=== PATIENT | female | born 1965 | race Hispanic/Latino ===

== ENCOUNTER 2024-12-13 22:23 | Emergency (ER) | payer MEDICARE ==
[~2024-12-13] VITALS: Ht 160 cm; Wt 54.4 kg
[~2024-12-13 22:23] MED LIST: ETOMIDATE 2 MG/ML 10 ML INJ IV ONE; SUCCINYLCHOLINE CHLORIDE 20 MG/ML 10ML VIAL ONE
[2024-12-13] MEDS: IPRATROPIUM BROMIDE 0.02% 2.5 ML NEB NEB ONE (23:00)
[2024-12-13] MEDS: ALBUTEROL SULF 0.083% NEB SOLN 3 ML NEB NEB STA (23:01)
[2024-12-13] MEDS: METHYLPREDNISOLONE SOD SUCC 125 MG/2ML VIAL IV ONE (23:05)
[2024-12-13 23:17] LABS: BASOPHILS % 0.5 % (0.0-1.0); EOSINOPHILS % 0.5 % (0.0-6.0); HEMATOCRIT 38.8 % (34.2-44.1); HEMOGLOBIN 11.6 g/dL (12.0-16.0); LYMPHOCYTES # (AUTO) 0.6 (1.0-3.2); LYMPHOCYTES % 9.3 % (18.0-39.1); MEAN CORPUSCULAR HEMOGLOBIN 24.3 pg (28-32); MEAN CORPUSCULAR HGB CONC 29.9 g/dL (31-35); MEAN CORPUSCULAR VOLUME 81.3 fL (81-99); MONOCYTES # (AUTO) 0.7 (0.2-0.8); MONOCYTES % 12.5 % (4.4-11.3); NEUTROPHILS # (AUTO) 4.5 (2.1-6.9); NEUTROPHILS % 75.5 % (38.7-80.0); PLATELET COUNT 278 x10e3/uL (140-360); RED BLOOD COUNT 4.77 x10e6/uL (3.6-5.1); RED CELL DISTRIBUTION WIDTH 23.7 % (11.7-14.4); WHITE BLOOD COUNT 5.93 x10e3/uL (4.8-10.8)
[2024-12-13 23:21] LABS: INR 1.15; PARTIAL THROMBOPLASTIN TIME 25.1 seconds (23.8-35.5); PROTHROMBIN TIME 15.4 seconds (11.9-14.5)
[2024-12-13] MEDS: FUROSEMIDE INJ 10 MG/ML 4 ML VIAL IV ONE (23:29)
[2024-12-13 23:45] LABS: ALBUMIN 3.2 g/dL (3.5-5.0); ANION GAP 26.6 mmol/L (8-16); BILIRUBIN,TOTAL 1.8 mg/dL (0.2-1.2); CALCIUM 9.2 mg/dL (8.4-10.2); CREATININE, SERUM 0.88 mg/dL (0.57-1.11); TOTAL PROTEIN 6.4 g/dL (6.5-8.1)
[2024-12-13 23:49] LABS: ABG PH 7.16 (7.35-7.45)
[2024-12-13 23:50] LABS: TROPONIN I 0.299 ng/mL (0-0.300)
[2024-12-13 23:50] LABS: ABG HCO3 27 mmol/L (22-26); ABG PCO2 77 mmHg (35-45); ABG PO2 265 mmHg (80-105); ABG TCO2 30
[2024-12-13] MEDS ORDERED: NOREPINEPHRINE 8 MG/D5W 250 ML 250 ML ONE (23:53)
[2024-12-13 23:54] LABS: POTASSIUM 5.6 mmol/L (3.5-5.1)
[2024-12-13] MEDS ORDERED: SODIUM CHLORIDE 0.9% 1000ML 2,000 ML ONE (23:55)
[2024-12-13] MEDS ORDERED: ACETAMINOPHEN 1000 MG/100 ML 100 ML IV ONE (23:58)
[2024-12-13 23:59] LABS: CORONAVIRUS COVID-19 AG NEGATIVE (NEGATIVE); INFLUENZA A AG NEGATIVE (NEGATIVE); INFLUENZA B AG NEGATIVE (NEGATIVE)
[2024-12-14] MEDS: ACETAMINOPHEN 1000 MG/100 ML IV STA (00:09)
[2024-12-14] MEDS: SODIUM CHLORIDE 0.9% 1000ML 1,630 ML IV ONE (00:10)
[2024-12-14] MEDS ORDERED: PROPOFOL IV EMULSION 10MG/ML 100 ML ONE (00:29)
[2024-12-14] MEDS: NOREPINEPHRINE 8 MG/D5W 250 ML 250 ML IV SCH (00:50)
[2024-12-14] MEDS: PROPOFOL IV EMULSION 10 MG/ML 50 ML VIAL IV PRN (00:53)
[2024-12-14 01:24] LABS: BILIRUBIN,URINE NEGATIVE (NEGATIVE); CLARITY,URINE CLOUDY (CLEAR); COLOR,URINE YELLOW (YELLOW); GLUCOSE, URINE NEGATIVE (NEGATIVE); KETONES,URINE NEGATIVE (NEGATIVE); LEUKOCYTE ESTERASE ,URINE NEGATIVE (NEGATIVE); NITRITE,URINE NEGATIVE (NEGATIVE); PH,URINE 5.5 (5 - 7); PROTEIN,URINE DIPSTICK 2+ (NEGATIVE); URINE UROBILINOGEN 2 mg/dL (0.2 - 1)
[2024-12-14 01:34] LABS: AMORPHOUS SEDIMENT,URINE MANY; BACTERIA,URINE MANY /HPF; EPITHELIAL CELLS,URINE MODERATE /LPF; RENAL EPITHELIAL CELLS,URINE FEW; TRANSITIONAL EPI CELLS,URINE MANY
[2024-12-14 01:41] LABS: ABG PH 7.14 (7.35-7.45)
[2024-12-14 01:42] LABS: ABG HCO3 23 mmol/L (22-26); ABG PCO2 66 mmHg (35-45); ABG PO2 55 mmHg (80-105); ABG TCO2 24
[2024-12-14 02:30] VITALS: PULSE 115; RESP 23; TEMP 99.1
[2024-12-14 03:35] VITALS: BP 102/60; PULSE 113; RESP 31; TEMP 99.2; O2SAT 100
[2024-12-16 12:25] LABS: ABG HCO3 23 mmol/L (22-26); ABG PCO2 66 mmHg (35-45); ABG PH 7.14 (7.35-7.45); ABG PO2 55 mmHg (80-105); ABG TCO2 24
[2024-12-16 12:25] LABS: ABG HCO3 27 mmol/L (22-26); ABG PCO2 77 mmHg (35-45); ABG PH 7.16 (7.35-7.45); ABG PO2 265 mmHg (80-105); ABG TCO2 30
== END 2024-12-14 04:10 | disposition other institution (70) ==
LOC: ER 22:29
DX: J96.90 Respiratory failure, unspecified, unspecified whether with hypoxia or hypercapnia (principal); R65.21 Severe sepsis with septic shock; R50.9 Fever, unspecified; J18.9 Pneumonia, unspecified organism; E87.20 Acidosis, unspecified; M32.9 Systemic lupus erythematosus, unspecified; M06.9 Rheumatoid arthritis, unspecified; J84.10 Pulmonary fibrosis, unspecified; Z94.2 Lung transplant status; R94.31 Abnormal electrocardiogram [ECG] [EKG]
CPT/HCPCS: 31500; 36415; 36600 ×2; 71045 ×2; 80053; 81001; 82550; 82805; 83605; 83880; 84484; 85025; 85610; 85730; 87040; 87086; 87428; 93005; 94002; 94640; 94660; 99285; J0131; J0330; J0456; J0696; J1940; J2704; J2919; J7030; J7050; 51700